=== PATIENT | male | born 1980 | race Caucasian/White ===

== ENCOUNTER 2021-10-22 05:29 | Emergency (ER) | payer MEDICARE, MEDICAID ==
[~2021-10-22] VITALS: Ht 182.9 cm; Wt 113.6 kg
[~2021-10-22 05:29] MED LIST: ALBU8.5H17 INH; BUDE10.22 INH; BUPR1FIL3 SL; CLON0.1T2 PO; HYDR-3686 PO; LISI20TA28 PO; METO-395 PO; MULT-25 PO; NALO4SPR BOTHNARES; PANT40TA54 PO; THIA50TA10 PO; WOOL454C TP
[2021-10-22] MEDS ORDERED: oxyCODONE IR 5mg (immed. release) tablet PO ONE ×2 (06:10→08:35)
[2021-10-22 06:17] VITALS: BP 150/102
--- NOTE | 2021-10-22 06:45 | NUR ---
Pt reports he has been sleeping in recliner at home as laying in bed painful. Recliner chair placed in room and pt able to transfer to chair.
[2021-10-22] MEDS ORDERED: normal saline 1000ML IV soln IVB ONE (07:20)
[2021-10-22] MEDS ORDERED: normal saline 1000ml 1,000 ML IV ONE (07:20)
== END 2021-10-22 09:29 | disposition home or self-care (01) ==
LOC: ER 05:31
DX: G89.29 Other chronic pain (principal); M25.551 Pain in right hip; M25.552 Pain in left hip; I10 Essential (primary) hypertension; Z79.899 Other long term (current) drug therapy
CPT/HCPCS: 93005; 99284

== ENCOUNTER → 2024-08-19 | Outpatient (CLI) | payer MEDICARE, MEDICAID ==
--- NOTE | 2024-08-19 12:47 | RADIOLOGY REPORT ---
CLINICAL INDICATION: BILATERAL FEMORAL NECROSIS AND CHRONIC PAIN TECHNIQUE: 3 radiographic views of the pelvis were obtained. 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
== END | disposition home or self-care (01) ==
LOC: RAD 11:44
PROVIDERS: ATTEND Physician Assistant
DX: M16.0 Bilateral primary osteoarthritis of hip (principal); M87.9 Osteonecrosis, unspecified
CPT/HCPCS: 73522